=== PATIENT | female | born 1960 ===

== ENCOUNTER 2021-12-21 10:57 | Day surgery (SDC) | payer SELFPAY ==
[~2021-12-21] VITALS: Ht 152.4 cm; Wt 38.4 kg
[2021-12-21] VITALS (9 sets, daily range): BP systolic 115–153; BP diastolic 53–75; PULSE 68–88; TEMP 98.7
[2021-12-21] MEDS ORDERED: ASPIRIN E.C. 8181 MG PO (11:27)
[2021-12-21] MEDS ORDERED: TOPROL XL 25MG25 MG PO (11:28)
--- NOTE | 2021-12-21 11:30 | NUR ---
SEE MERGE FOR ALL MEDICATION ADMINISTRATION TIMES/DOSAGES AND INTRA/POST PROCEDURE SEDATION ASSESSMEMENTS. PRE PROCEDURE ASSESSMENT COMPLETED IN [facility].
[2021-12-21 11:38] LABS: HEMATOCRIT 40.8 % (37.0-47.0); HEMOGLOBIN 13.6 g/dl (12.5-16.0); MEAN CELL VOLUME 91 fl (80.0-100.0); MEAN CORPUSCULAR HEMOGLOBIN 30 pg (27-31); MEAN CORPUSCULAR HGB CONC 33 g/dl (33.0-37.0); MEAN PLATELET VOLUME 11.1 fl (7.4-10.4); PLATELET COUNT 263 K/mm3 (130-400); RED BLOOD COUNT 4.49 M/mm3 (4.10-5.30); REDCELL DISTRIBUTION WIDTH-CV 13.8 % (11.5-14.5)
[2021-12-21 11:47] LABS: PARTIAL THROMBOPLASTIN TIME 30.4 SECONDS (26.0-37.0)
[2021-12-21 11:56] LABS: CALCIUM 9.5 mg/dL (8.4-10.2); CREATININE, serum 0.84 mg/dL (0.57-1.11); POTASSIUM 3.8 mmol/L (3.5-4.5)
[2021-12-21 12:27] LABS: INR 1.2 (0.8-3.0); PROTHROMBIN TIME 12.8 SECONDS (9.7-12.8)
--- NOTE | 2021-12-21 13:15 | NUR ---
Pt back to [facility] after negative heart cath. bs report from Leatha ROSEN. Pt is awake and alert, no distress. TR band to rt wrist. cms intact distal. NSR on monitor. call light in reach. Son at bs. Pt updated on POC. no questions at this time.
[2021-12-21] MEDS ORDERED: LIPITOR 10MG10 MG PO (13:25)
--- NOTE | 2021-12-21 14:25 | NUR ---
Initial visit; Patient thanked [employer] for looking in on her and offering prayer post surgical. [employer] offered comfort, encouragement and God's blessings.
--- NOTE | 2021-12-21 16:00 | NUR ---
Pt ready for discharge. TR band has been deflated with no problem. site dressed with bandaid, folded 2x2 and coban. cms remains intact distal. Pt did fine during her recovery, vitals remained stable, she was able to eat lunch. She has been up and ambulatory with steady gait. I have reviewed dc/rx and fu instructions with pt who verbalized understanding. IV was dc'd with cath intact, dressing applied. Pt will be transferred to exit via wheelchair.
== END 2021-12-21 16:22 | disposition home or self-care (01) ==
LOC: COL.CAR 10:57
PROVIDERS: Internal Medicine Cardiovascular Disease
DX: I25.10 Atherosclerotic heart disease of native coronary artery without angina pectoris (principal); I25.2 Old myocardial infarction; K21.9 Gastro-esophageal reflux disease without esophagitis; I35.1 Nonrheumatic aortic (valve) insufficiency; I11.9 Hypertensive heart disease without heart failure; E78.5 Hyperlipidemia, unspecified; F17.210 Nicotine dependence, cigarettes, uncomplicated; Z95.5 Presence of coronary angioplasty implant and graft; Z79.899 Other long term (current) drug therapy; Z79.82 Long term (current) use of aspirin; Z83.3 Family history of diabetes mellitus; Z82.3 Family history of stroke; Z80.0 Family history of malignant neoplasm of digestive organs
CPT/HCPCS: J1644; J2250; J3010; J7030; Q9967